=== PATIENT | female | born 1950 | race Caucasian/White ===

== ENCOUNTER 2020-07-20 18:25 | Emergency (ER) | payer OTHER ==
[~2020-07-20] VITALS: Ht 149.9 cm; Wt 52.2 kg
[2020-07-20 19:08] LABS: BASOPHILS ABSOLUTE AUTO 0.05 K/mm3 (0.00-0.23); BASOPHILS PERCENT AUTO 0 % (0-2); EOSINOPHILS ABSOLUTE AUTO 0.09 K/mm3 (0.00-0.68); EOSINOPHILS PERCENT AUTO 1 % (0-6); Hematocrit 43.6 % (33.0-51.0); Hemoglobin 14.3 g/dL (11.5-16.0); IMMATURE GRAN ABSOLUTE AUTO 0.03 K/mm3 (0.00-0.10); IMMATURE GRAN PERCENT AUTO 0 % (0-1); LYMPHOCYTES ABSOLUTE AUTO 1.43 K/mm3 (0.84-5.20); LYMPHOCYTES PERCENT AUTO 11 % (21-46); MONOCYTES ABSOLUTE AUTO 0.75 K/mm3 (0.16-1.47); MONOCYTES PERCENT AUTO 6 % (4-13); Mean Corpuscular HGB 29.1 pg (26.0-34.0); Mean Corpuscular HGB Conc 32.8 g/dL (31.5-36.5); Mean Corpuscular Volume 89 fL (80-100); Mean Platelet Volume 9.6 fL (9.1-12.4); NEUTROPHILS ABSOLUTE AUTO 10.95 K/mm3 (1.96-9.15); NEUTROPHILS PERCENT AUTO 82 % (41-73); Platelet Count 361 K/mm3 (150-400); RDW Coefficient Variation 14.1 % (11.7-14.2); Red Blood Cell Count 4.92 M/mm3 (3.80-5.20)
[2020-07-20 19:41] LABS: Alanine Aminotransfer (ALT/SGP 22 U/L (12-78); Albumin, Blood 3.7 g/dL (3.4-5.0); Albumin/Globulin Ratio 0.9 (0.8-1.8); Alk Phos 117 U/L (50-136); Anion Gap 10 mmol/L (6-16); Aspartate Aminotrans (AST/SGOT 15 U/L (12-37); Bilirubin, Total 0.5 mg/dL (0.1-1.0); Blood Urea Nitrogen 15 mg/dL (8-24); Bun/Creatinine Ratio 17.3 (12.0-20.0); CO2, Blood 23 mmol/L (21-32); Calcium, Blood 9.3 mg/dL (8.5-10.1); Chloride, Blood 109 mmol/L (98-108); Creatinine, Blood 0.87 mg/dL (0.40-1.00); Globulin, Blood 4.1 g/dL (2.2-4.0); Glomerular Filtration Rate >60 (60-); Glucose, Blood 113 mg/dL (70-99); Potassium, Blood 4.1 mmol/L (3.5-5.5); Sodium, Blood 142 mmol/L (136-145); Total Protein, Blood 7.8 g/dL (6.4-8.2); Troponin I <0.015 ng/mL (0.000-0.040)
[2020-07-20] MEDS ORDERED: IBUP600 PO (21:54)
[2020-07-21 00:10] LABS: Source, Urine Clean Catch
[2020-07-21 00:27] LABS: Bilirubin, Urine Neg (Neg); Blood, Urine Neg (Neg); Glucose Qualitative, Urine Neg (Neg); Ketones, Urine 1+ (Neg); Leukocyte Esterase, Urine 2+ (Neg); Nitrite, Urine Neg (Neg); Protein, Urine Neg (Neg); Urobilinogen, Urine NORM (Normal); pH, Urine 6.5 (5.0-8.0)
[2020-07-21 00:33] LABS: Appearance, Urine Clear (Clear); Color, Urine Yellow (P-Yellow)
[2020-07-21 00:34] LABS: Bacteria Few /hpf; Mucus Light (0-Heavy); Red Blood Cells, Urine Not Seen /hpf (0-2); Squamous Epithelial Cells Few /hpf (Few)
[2020-07-22] MEDS ORDERED: IBUP600 PO (14:28)
== END 2020-07-21 00:50 | disposition home or self-care (01) ==
LOC: ER 18:25
PROVIDERS: Physician Assistant; Student in an Organized Health Care Education/Training Program
DX: J44.9 Chronic obstructive pulmonary disease, unspecified (principal); G89.29 Other chronic pain; R07.81 Pleurodynia; R10.31 Right lower quadrant pain; I10 Essential (primary) hypertension; K21.9 Gastro-esophageal reflux disease without esophagitis; F17.210 Nicotine dependence, cigarettes, uncomplicated
CPT/HCPCS: 36415; 71046; 71260; 74177; 80053; 81001; 83880; 84484; 85025; 87086; 93005; 93010; 96374-59; 96375; 99285-25; J1940; J2270; Q9967

== ENCOUNTER 2020-07-22 14:06 | Inpatient (IN) | payer OTHER ==
[~2020-07-22] VITALS: Ht 157.5 cm; Wt 57.0 kg
[~2020-07-22 14:06] MED LIST: IBUP600 PO
[2020-07-22] MEDS ORDERED: IBUP600 PO (14:28)
[2020-07-22 14:45] LABS: Hematocrit 45.7 % (33.0-51.0); Hemoglobin 15.5 g/dL (11.5-16.0); Mean Corpuscular HGB Conc 33.9 g/dL (31.5-36.5); Mean Corpuscular Volume 86 fL (80-100); Mean Platelet Volume 9.9 fL (9.1-12.4); Platelet Count 285 K/mm3 (150-400); RDW Standard Deviation 44.3 fL (35.1-46.3); Red Blood Cell Count 5.34 M/mm3 (3.80-5.20); White Blood Cell Count 23.24 K/mm3 (4.00-11.30)
[2020-07-22 15:02] LABS: Albumin, Blood 2.9 g/dL (3.4-5.0); Albumin/Globulin Ratio 0.6 (0.8-1.8); Bilirubin, Total 0.4 mg/dL (0.1-1.0); Bun/Creatinine Ratio 20.3 (12.0-20.0); Calcium, Blood 9.6 mg/dL (8.5-10.1); Creatinine, Blood 0.98 mg/dL (0.40-1.00); Globulin, Blood 4.9 g/dL (2.2-4.0); Potassium, Blood 3.1 mmol/L (3.5-5.5); Total Protein, Blood 7.8 g/dL (6.4-8.2); Troponin I 0.039 ng/mL (0.000-0.040)
[2020-07-22 16:10] LABS: BAND PERCENT MAN 4 % (0-8); BASOPHILS PERCENT MAN 0 % (0-2); EOSINOPHILS PERCENT MAN 0 % (0-6); LYMPHOCYTES ABSOLUTE MAN 0.46 K/mm3 (0.84-5.20); LYMPHOCYTES PERCENT MAN 2 % (21-46); MONOCYTES ABSOLUTE MAN 0.69 K/mm3 (0.16-1.47); MONOCYTES PERCENT MAN 3 % (4-13); NEUTROPHILS ABSOLUTE MAN 22.07 K/mm3 (1.96-9.15); SEG NEUTROPHILS PERCENT MAN 91 % (41-73); TOTAL CELLS COUNTED 100
--- NOTE | 2020-07-22 22:20 | NUR ---
ADMIT NOTE PATIENT DROWSY UPON ADMIT BUT AWAKENS EASILY. PATIENT VERY PAINFUL AND MOANS/CRIES OUT CONSTANTLY WHEN AWAKE DUE TO BACK/RIB PAIN. HOWEVER, PATIENT QUICKLY FALLS ASLEEP WHEN NOT BEING MOVED OR SPOKEN TOO. PATIENT ABLE TO MOVE SELF ABOUT IN BED. PATIENT SETTLED IN AND ORIENTED TO THE ROOM, CALL LIGHT, AND UNIT.
[2020-07-23 04:10] LABS: BASOPHILS ABSOLUTE AUTO 0.04 K/mm3 (0.00-0.23); BASOPHILS PERCENT AUTO 0 % (0-2); Hematocrit 40.7 % (33.0-51.0); Hemoglobin 13.5 g/dL (11.5-16.0); LYMPHOCYTES ABSOLUTE AUTO 0.42 K/mm3 (0.84-5.20); LYMPHOCYTES PERCENT AUTO 2 % (21-46); MONOCYTES PERCENT AUTO 5 % (4-13); Mean Corpuscular HGB Conc 33.2 g/dL (31.5-36.5); Mean Corpuscular Volume 87 fL (80-100); Mean Platelet Volume 10.7 fL (9.1-12.4); Platelet Count 206 K/mm3 (150-400); RDW Coefficient Variation 14.2 % (11.7-14.2); RDW Standard Deviation 45.5 fL (35.1-46.3); Red Blood Cell Count 4.66 M/mm3 (3.80-5.20); White Blood Cell Count 17.85 K/mm3 (4.00-11.30)
[2020-07-23 04:25] LABS: EOSINOPHILS PERCENT AUTO 0 % (0-6); IMMATURE GRAN ABSOLUTE AUTO 0.14 K/mm3 (0.00-0.10); IMMATURE GRAN PERCENT AUTO 1 % (0-1); NEUTROPHILS ABSOLUTE AUTO 16.35 K/mm3 (1.96-9.15); NEUTROPHILS PERCENT AUTO 92 % (41-73)
[2020-07-23 04:30] LABS: Anion Gap 8 mmol/L (6-16); Blood Urea Nitrogen 16 mg/dL (8-24); Bun/Creatinine Ratio 19.6 (12.0-20.0); CO2, Blood 26 mmol/L (21-32); Calcium, Blood 8.7 mg/dL (8.5-10.1); Chloride, Blood 95 mmol/L (98-108); Creatinine, Blood 0.82 mg/dL (0.40-1.00); Glomerular Filtration Rate >60 (60-); Glucose, Blood 166 mg/dL (70-99); Potassium, Blood 3.5 mmol/L (3.5-5.5); Sodium, Blood 129 mmol/L (136-145)
--- NOTE | 2020-07-23 04:54 | NUR ---
UPDATE DR JOHN NOTIFIED OF PATIENT'S SODIUM LEVEL OF 129 THIS AM. NO ORDERS RECEIVED AT THIS TIME.
[2020-07-23 05:33] LABS: BAND PERCENT MAN 15 % (0-8); BASOPHILS PERCENT MAN 0 % (0-2); EOSINOPHILS PERCENT MAN 0 % (0-6); LYMPHOCYTES ABSOLUTE MAN 0.35 K/mm3 (0.84-5.20); LYMPHOCYTES PERCENT MAN 2 % (21-46); MONOCYTES ABSOLUTE MAN 1.24 K/mm3 (0.16-1.47); MONOCYTES PERCENT MAN 7 % (4-13); NEUTROPHILS ABSOLUTE MAN 16.24 K/mm3 (1.96-9.15); SEG NEUTROPHILS PERCENT MAN 76 % (41-73); TOTAL CELLS COUNTED 100
--- NOTE | 2020-07-23 05:49 | NUR ---
SHIFT SUMMARY PATIENT CONTINUES TO ALMOST CONSTANTLY MOAN AND CRY OUT WHILE AWAKE, STATING "I HAVE NEVER HURT THIS MUCH BEFORE!" BUT THEN PATIENT QUICKLY FALLS ASLEEP WHEN NOT BEING SPOKEN TO OR MOVED. PATIENT CONTINUES TO BE DROWSY. PATIENT MEDICATED FOR PAIN PER EMAR. PATIENT MEDICATED FOR ELEVATED BLOOD PRESSURE CHARTED. PATIENT'S VITAL SIGNS CHARTED. PATIENT CURRENTLY APPEARS TO BE SLEEPING QUIETLY AND COMFORTABLY. BED ALARM ON FOR SAFETY. WILL COTINUE TO MONITOR AND REPORT TO ONCOMING RN.
--- NOTE | 2020-07-23 16:34 | NUR ---
Echocardiogram completed.
--- NOTE | 2020-07-23 17:11 | NUR ---
SHIFT SUMMARY PT A&Ox3; CALM AND COOPERATIVE WITH RN. PT MOANING IN PAIN; MEDICATED PER EMAR; PT REFUSING TYLENOL ALONE. PT COUGHING; PRODUCTIVE; SPO2 >90 % ON 4L O2 VIA NC. PT DENIES NAUSEA, CHEST PAIN, AND DIZZINESS. PT RECEIVING IV ANTIBIOTICS. ECHO COMPLETED DURING SHIFT. DR WARREN NOTIFIED OF TROPS RESULTS. ELEVATED BP NOTED. OTHER VSS. NO OTHER ACUTE CHANGES NOTED DURING SHIFT. WILL CONTINUE TO MONITOR UNTIL REPORT GIVEN TO ONCOMING RN.
[2020-07-24 05:20] LABS: Hematocrit 36.2 % (33.0-51.0); Mean Corpuscular HGB 28.6 pg (26.0-34.0); Mean Corpuscular HGB Conc 33.1 g/dL (31.5-36.5); Mean Corpuscular Volume 86 fL (80-100); Mean Platelet Volume 10.1 fL (9.1-12.4); Platelet Count 202 K/mm3 (150-400); RDW Coefficient Variation 14.2 % (11.7-14.2); RDW Standard Deviation 45.3 fL (35.1-46.3); Red Blood Cell Count 4.19 M/mm3 (3.80-5.20); White Blood Cell Count 12.95 K/mm3 (4.00-11.30)
[2020-07-24 05:32] LABS: Anion Gap 10 mmol/L (6-16); Blood Urea Nitrogen 11 mg/dL (8-24); Bun/Creatinine Ratio 19.5 (12.0-20.0); CO2, Blood 24 mmol/L (21-32); Calcium, Blood 8.3 mg/dL (8.5-10.1); Chloride, Blood 102 mmol/L (98-108); Creatinine, Blood 0.57 mg/dL (0.40-1.00); Glomerular Filtration Rate >60 (60-); Glucose, Blood 110 mg/dL (70-99); Sodium, Blood 136 mmol/L (136-145)
--- NOTE | 2020-07-24 05:47 | NUR ---
SHIFT SUMMARY NO ACUTE CHANGES THIS SHIFT. MEDICATED FOR HIGH BP X2. MENTATION SEEMS TO BE BACK AND FORTH. WILL BE LUCID AND WITHIN A COUPLE MINUTES IS EITHER CONFUSED OR ASLEEP. PT CONSISTANTLY CALLS OUT FOR PAIN MEDICINE THROUGH THE NIGHT, ONCE NURSE IS IN ROOM TO GIVE MEDICATION PT IS ASLEEP AND WILL NOT AWAKE TO VOICE. MEDICATED FOR PAIN X2. PT IS LAYING IN BED WITH EYES CLOSED, EVEN AND UNLABORED RESPIRATIONS, NO APPARTENT NEEDS OR DISTRESS AT THIS TIME. CALL LIGHT AND PERSONAL ITEMS WITHIN REACH. BED IN LOWERED POSITION. WILL CONTINUE TO MONITOR UNTIL REPORT GIVEN TO DAY RN.
[2020-07-24 06:16] LABS: BAND PERCENT MAN 14 % (0-8); BASOPHILS PERCENT MAN 0 % (0-2); EOSINOPHILS PERCENT MAN 0 % (0-6); LYMPHOCYTES ABSOLUTE MAN 0.51 K/mm3 (0.84-5.20); LYMPHOCYTES PERCENT MAN 4 % (21-46); MONOCYTES ABSOLUTE MAN 0.64 K/mm3 (0.16-1.47); MONOCYTES PERCENT MAN 5 % (4-13); NEUTROPHILS ABSOLUTE MAN 11.78 K/mm3 (1.96-9.15); SEG NEUTROPHILS PERCENT MAN 77 % (41-73); TOTAL CELLS COUNTED 100
--- NOTE | 2020-07-24 17:40 | NUR ---
SHIFT SUMMARY PT A&Ox3; INTERMITTENT FORGETFULNESS. DROWSY FOR MAJORITY OF SHIFT. PT RESTING IN BED, 1 PERSON ASSIST TO BSC. PT REPORTS BACK; EPIGASTRIC AND RIGHT BREAST PAIN; MEDICATED PER EMAR. PT TITRATED FROM 4L O2 VIA NC TO 3L O2 VIA NC; SPO2 >90%. PT DENIES NAUSEA; DIZZINESS, AND LIGHTHEADEDNESS. PT RECIEVING IV ANTIBIOTICS. IV POTASSIUM REPLACEMENT. VSS. NO OTHER ACUTE CHANGES NOTED DURING SHIFT. WILL CONTINUE TO MONITOR UNTIL REPORT GIVEN TO ONCOMING RN.
[2020-07-24 18:49] LABS: Amylase, Blood 12 U/L (25-115)
[2020-07-24 18:52] LABS: Anion Gap 7 mmol/L (6-16); Blood Urea Nitrogen 14 mg/dL (8-24); Bun/Creatinine Ratio 25.3 (12.0-20.0); CO2, Blood 23 mmol/L (21-32); Calcium, Blood 8.5 mg/dL (8.5-10.1); Chloride, Blood 109 mmol/L (98-108); Creatinine, Blood 0.55 mg/dL (0.40-1.00); Glomerular Filtration Rate >60 (60-); Glucose, Blood 135 mg/dL (70-99); Potassium, Blood 3.8 mmol/L (3.5-5.5); Sodium, Blood 139 mmol/L (136-145)
--- NOTE | 2020-07-24 22:42 | NUR ---
ASSUMED CARE OF PATIENT AT APPROXIMATELY 1910 FROM REGINO Rios RN. PATIENT ALERT AND ORIENTED TO SELF, AND LOCATION; FORGETFUL AT TIMES. PATIENT REPORTS CHORNIC BACK PAIN; MEDICATED PER EMAR; PATIENT REPORTS PAIN WILL NOT ALLOW HER TO GET UP TO BEDSIDE COMMODE; MEDICATED PER EMAR; PATIENT USES BEDPAN. PATIENT MOANS WHILE AWAKE; ABLE TO FALL ASLEEP BUT PHONE RANG AND WOKE PATIENT BACK UP. PATIENT REPORTS PAIN IS IN UPPER BACK AND GOES TO FRONT OF CHEST FOR PAST 5 DAYS. PATIENT DENIES NUMBNESS, TINGLING, DIZZINESS OR NAUSEA. NSR W/ PAC'S ON TELE; OXYGEN SATURATION ABOVE 90% ON 3LPM VIA NC. IVF INFUSING INTO PG. PATIENT CURRENTLY RESTING IN BED; CALL LIGHT IN REACH; BED IN LOWEST POSISTION; BED ALARM ON; WILL CONTINUE TO MONITOR AND ASSESS UNTIL END OF SHIFT.
[2020-07-25 04:42] LABS: BASOPHILS ABSOLUTE AUTO 0.02 K/mm3 (0.00-0.23); BASOPHILS PERCENT AUTO 0 % (0-2); EOSINOPHILS ABSOLUTE AUTO 0.06 K/mm3 (0.00-0.68); EOSINOPHILS PERCENT AUTO 0 % (0-6); Hematocrit 37.1 % (33.0-51.0); Hemoglobin 12.3 g/dL (11.5-16.0); IMMATURE GRAN ABSOLUTE AUTO 0.14 K/mm3 (0.00-0.10); IMMATURE GRAN PERCENT AUTO 1 % (0-1); LYMPHOCYTES ABSOLUTE AUTO 0.89 K/mm3 (0.84-5.20); LYMPHOCYTES PERCENT AUTO 7 % (21-46); MONOCYTES ABSOLUTE AUTO 1.13 K/mm3 (0.16-1.47); MONOCYTES PERCENT AUTO 9 % (4-13); Mean Corpuscular HGB Conc 33.2 g/dL (31.5-36.5); Mean Corpuscular Volume 88 fL (80-100); Mean Platelet Volume 9.7 fL (9.1-12.4); NEUTROPHILS PERCENT AUTO 83 % (41-73); Platelet Count 221 K/mm3 (150-400); RDW Coefficient Variation 14.6 % (11.7-14.2); RDW Standard Deviation 47.1 fL (35.1-46.3); Red Blood Cell Count 4.24 M/mm3 (3.80-5.20); White Blood Cell Count 13.34 K/mm3 (4.00-11.30)
[2020-07-25 04:59] LABS: Anion Gap 7 mmol/L (6-16); Blood Urea Nitrogen 11 mg/dL (8-24); Bun/Creatinine Ratio 21.2 (12.0-20.0); CO2, Blood 26 mmol/L (21-32); Calcium, Blood 8.4 mg/dL (8.5-10.1); Chloride, Blood 107 mmol/L (98-108); Creatinine, Blood 0.52 mg/dL (0.40-1.00); Glomerular Filtration Rate >60 (60-); Glucose, Blood 112 mg/dL (70-99); Potassium, Blood 3.3 mmol/L (3.5-5.5); Sodium, Blood 140 mmol/L (136-145)
--- NOTE | 2020-07-25 05:56 | NUR ---
PATIENT UP MOST OF NIGHT; SLEPT FOR ABOUT 30 MINUTES AT A TIME. MOANED MOST OF NIGHT; REPORTS SHE HAS BEEN IN THIS PAIN FOR MOST OF HER LIFE. REQUESTED TO SIT IN CHAIR; RECLINER PROVIDED AND PATIENT HAS BEEN SLEEPING SINCE BEING PLACED IN RECLINER. VSS. WILL CONTINE TO MONITOR AND ASSESS UNTIL END OF SHIFT.
--- NOTE | 2020-07-25 09:54 | NUR ---
NS HUNG AT 5ML/HR TKO
[2020-07-25 11:23] LABS: Vancomycin, Trough 3.8 ug/mL (5.0-10.0)
--- NOTE | 2020-07-25 13:00 | NUR ---
PT ARRIVED TO ROOM 313 VIA W/C FROM PCU AND ABLE TO TRANSFER SELF TO BED WITH 1 ASSIST. SOB WITH ANY ACTIVITY AND SLOW TO RECOVER. AUDIBLE CRACKLES HEARD WITHOUT STETHESCOPE. SETTLED IN TO BED AND ORIENTED TO ROOM.
--- NOTE | 2020-07-25 15:55 | NUR ---
PT SLEEPING THIS AFTERNOON. AUDIBLE CRACKLES LESS BUT IS STILL SOB WITH ANY ACTIVITY. UP TO COMMODE SEVERAL TIMES THIS AFTERNOON.
--- NOTE | 2020-07-25 18:39 | NUR ---
SHIFT SUMMARY PT SLEEPING ON AND OFF SINCE ARRIVAL. STATES SHE THINKS SHE HASN'T SLEPT. BP ELEVATED. LEFT A MESSAGE WITH MD WITH NO RETURN CALL. MD DID COME TO UNIT LATER AND SPOKE ABOUT BP AND NEEDING TELE FOR LABATALOL. NEW ORDERS. RESTLESS LEGS THIS EVENING WHEN FLEXERIL GIVEN AND REPORTED FEELING VERY HOT AND NOT FEELING WELL AT ALL. WILL REPORT CONDITION TO ONCOMING SHIFT.
[2020-07-26 05:24] LABS: BASOPHILS ABSOLUTE AUTO 0.04 K/mm3 (0.00-0.23); BASOPHILS PERCENT AUTO 0 % (0-2); EOSINOPHILS ABSOLUTE AUTO 0.12 K/mm3 (0.00-0.68); EOSINOPHILS PERCENT AUTO 1 % (0-6); Hematocrit 37.6 % (33.0-51.0); Hemoglobin 12.3 g/dL (11.5-16.0); IMMATURE GRAN ABSOLUTE AUTO 0.31 K/mm3 (0.00-0.10); IMMATURE GRAN PERCENT AUTO 2 % (0-1); LYMPHOCYTES ABSOLUTE AUTO 1.34 K/mm3 (0.84-5.20); LYMPHOCYTES PERCENT AUTO 9 % (21-46); MONOCYTES ABSOLUTE AUTO 1.03 K/mm3 (0.16-1.47); MONOCYTES PERCENT AUTO 7 % (4-13); Mean Corpuscular HGB 28.6 pg (26.0-34.0); Mean Corpuscular HGB Conc 32.7 g/dL (31.5-36.5); Mean Corpuscular Volume 87 fL (80-100); Mean Platelet Volume 9.7 fL (9.1-12.4); NEUTROPHILS ABSOLUTE AUTO 11.34 K/mm3 (1.96-9.15); NEUTROPHILS PERCENT AUTO 80 % (41-73); Platelet Count 261 K/mm3 (150-400); RDW Coefficient Variation 14.8 % (11.7-14.2); RDW Standard Deviation 48.3 fL (35.1-46.3); White Blood Cell Count 14.18 K/mm3 (4.00-11.30)
[2020-07-26 05:43] LABS: Anion Gap 5 mmol/L (6-16); Blood Urea Nitrogen 12 mg/dL (8-24); Bun/Creatinine Ratio 23.7 (12.0-20.0); CO2, Blood 29 mmol/L (21-32); Calcium, Blood 8.9 mg/dL (8.5-10.1); Chloride, Blood 107 mmol/L (98-108); Creatinine, Blood 0.51 mg/dL (0.40-1.00); Glomerular Filtration Rate >60 (60-); Glucose, Blood 110 mg/dL (70-99); Potassium, Blood 3.3 mmol/L (3.5-5.5); Sodium, Blood 141 mmol/L (136-145)
--- NOTE | 2020-07-26 06:32 | NUR ---
SHIFT SUMMARY: SBP ELEVATED. HYDRALAZINE ADMINISTERED PER ORDERS. PT DENIES RANDALL OR CHEST PAIN. MED FOR BACK PAIN SEVERAL TIMES PER ORDERS. PT STATES THIS IS NOT CHRONIC BUT STARTED W/ RECENT COUGHING. HAS SLEPT BETWEEN PAIN MED DOSES. 02 SATS 93% ON 2L VIA NC. TACHYPNEIC. RESPS SHALLOW. LS COARSE RHONCHI THROUGHOUT. PT STATES HER COUGH PRODUCES SMALL AMT OF WHITE SPUTUM. FLUTTER VALVE USE ENCOURAGED AND WITHIN REACH AT BEDSIDE. NO ACUTE CONCERS AT THIS TIME.
--- NOTE | 2020-07-26 08:33 | NUR ---
SPOKE TO DR WARREN ON HER ROUNDS- PT BP HAS BEEN PERSISTENTLY HIGH WITH NO CHANGE WITH PRN HYDRALIZINE. PT VERY LETHARGIC THIS MORNING, SHE WILL RESPOND TO STAFF BUT IS ASLEEP WITHIN SECONDS OF WAKING. ORDER RECIEVED FOR TELE AND HOLD PO MEDS FOR NOW D/T LETHARGY.
[2020-07-26 11:30] LABS: Vancomycin, Trough 10.8 ug/mL (5.0-10.0)
--- NOTE | 2020-07-26 16:12 | NUR ---
Echo performed under my supervision.
--- NOTE | 2020-07-26 16:38 | NUR ---
PT CALLED AND STATED HER LEFT ARM WAS HRUTING REALLY BAD. PT HAS HAD IV POTASSIUM INFUSING FOR THE PAST 3-4 HOURS, FLUSHED THE PG IT FLUSHED WELL AND STOPPED HURTING ONCE FLUSHED. STARTED NS AT 75 PER HOUR CONCURRENT WITH THE POTASSIUM, PT TOLERATING WELL AT THIS TIME.
--- NOTE | 2020-07-26 16:44 | NUR ---
CALLED DR WARREN- SHE IS AWARE OF THE IVF RUNNING WITH THE IV POTASSIUM. RECIEVED ORDER FOR NS TO RUN CONCURRENTLY WITH THE POTASSIUM. WILL DC ORDER ONCE POTASSIUM IS COMPLETE.
--- NOTE | 2020-07-26 19:15 | NUR ---
SHIFT SUMMARY- PT MEDICATED FOR SBP GREATER THAN 180 ONCE TODAY WITH IV LEBETOLOL, BP CAME DOWN TO THE 140'S. PT ON TELE RUNNING NSR WITH LOTS OF PAC'S AND SOME PVC'S. PT HAS BEEN VERY LETHARGIC OFF AND ON TODAY. THIS EVENING SHE GOT UP AND SAT IN A CHAIR TO EAT HER DINNER. SHE ATE WELL. MEDICATED WITH PAIN MEDICATION WHEN THE PT WAS AWAKE AND REQUESTING PAIN MEDICATION. THIS EVENING RIGHT BEFORE CHANGE OF SHIFT THE PT HAD AN EPISODE OF TACHYPNEA, RESP RATE WAS UP TO 32 BPM. PT HAD GOTTEN UP TO THE BSC AND BACK TO THE BED, FULL SET OF VITALS COMPLETED AT THAT TIME. VEWS SCORE OF 3 FOR INCREASED RESPIRATIONS. CALLED RT FEMI AND HE CAME TO GIVE THE PT A BREATHING Tx. SHE SEEMS TO BE BREATHING MUCH BETTER AT THIS TIME.
[2020-07-26 21:09] LABS: Anion Gap 7 mmol/L (6-16); Blood Urea Nitrogen 16 mg/dL (8-24); Bun/Creatinine Ratio 24.9 (12.0-20.0); CO2, Blood 26 mmol/L (21-32); Calcium, Blood 8.8 mg/dL (8.5-10.1); Chloride, Blood 108 mmol/L (98-108); Creatinine, Blood 0.64 mg/dL (0.40-1.00); Glomerular Filtration Rate >60 (60-); Glucose, Blood 121 mg/dL (70-99); Potassium, Blood 4.1 mmol/L (3.5-5.5); Sodium, Blood 141 mmol/L (136-145)
--- NOTE | 2020-07-27 01:24 | NUR ---
0035 PT MOANING AND YELLING "OW" IN PAIN. MEDICATED FOR PAIN AT 0041. PT ALSO REQUESTED SOMETHING FOR SLEEP. MELATONIN GIVEN.
[2020-07-27 04:36] LABS: BASOPHILS ABSOLUTE AUTO 0.06 K/mm3 (0.00-0.23); BASOPHILS PERCENT AUTO 0 % (0-2); EOSINOPHILS ABSOLUTE AUTO 0.12 K/mm3 (0.00-0.68); EOSINOPHILS PERCENT AUTO 1 % (0-6); Hematocrit 36.4 % (33.0-51.0); IMMATURE GRAN ABSOLUTE AUTO 0.72 K/mm3 (0.00-0.10); IMMATURE GRAN PERCENT AUTO 5 % (0-1); LYMPHOCYTES ABSOLUTE AUTO 1.79 K/mm3 (0.84-5.20); LYMPHOCYTES PERCENT AUTO 12 % (21-46); MONOCYTES ABSOLUTE AUTO 1.14 K/mm3 (0.16-1.47); MONOCYTES PERCENT AUTO 7 % (4-13); Mean Corpuscular HGB 28.6 pg (26.0-34.0); Mean Corpuscular Volume 87 fL (80-100); Mean Platelet Volume 9.5 fL (9.1-12.4); NEUTROPHILS ABSOLUTE AUTO 11.48 K/mm3 (1.96-9.15); NEUTROPHILS PERCENT AUTO 75 % (41-73); Platelet Count 295 K/mm3 (150-400); RDW Standard Deviation 47.8 fL (35.1-46.3); White Blood Cell Count 15.31 K/mm3 (4.00-11.30)
[2020-07-27 04:59] LABS: Anion Gap 7 mmol/L (6-16); Blood Urea Nitrogen 15 mg/dL (8-24); Bun/Creatinine Ratio 29.4 (12.0-20.0); CO2, Blood 29 mmol/L (21-32); Chloride, Blood 106 mmol/L (98-108); Creatinine, Blood 0.51 mg/dL (0.40-1.00); Glomerular Filtration Rate >60 (60-); Glucose, Blood 129 mg/dL (70-99); Potassium, Blood 3.6 mmol/L (3.5-5.5); Sodium, Blood 142 mmol/L (136-145)
--- NOTE | 2020-07-27 06:44 | NUR ---
SHIFT SUMMARY PATIENT ALERT AND ORIENTED, ALTHOUGH SEEMS TO MAKE HERSELF ANXIOUS OFTEN TO THE POINT OF BEING SHORT OF BREATH. PATIENT MEDICATED PER EMAR FOR PAIN. POWERFLIDE PATEND AND FLUSHED. BED IN LOWEST POSITION WITH WHEELS LOCKED. PATIENT CURRENTLY IN RECLINER WITH WHEELS LOCKED AND ALARM ON. CALL LIGHT WITHIN REACH. REPORT GIVEN TO ONCOMING RN.
--- NOTE | 2020-07-27 07:32 | NUR ---
CALLED DR WARREN- PT LOOKS LIKE SHE IS MORE WEAK AND FEELS WORSE TODAY WHEN COMPARED TO YESTERDAY. O2 REQUIREMENTS HAVE INCREASED FROM 2L TO 3L OVER NIGHT. LUNG SOUNDS ARE MORE MOIST. SPOKE TO RT LOO FOR SUGGESTIONS. REQUESTED MUCINEX, OR MUCOMYST, POSSIBLE STEROIDS TO HELP OPEN THE AIRWAYS. PLANS TO ORDER REPEAT BLOOD CULTURES AND WILL PLACE OTHER MEDICATION ORDERS. NO VERBAL ORDERS RECIEVED AT THIS TIME.
--- NOTE | 2020-07-27 09:07 | NUR ---
SPOKE TO DR CEE- PT SITTING UP IN A CHAIR CALL LIGHT IN REACH, LUNGS SOUND WET AND CONGESTED. PT DOES NOT LIKE TO COUGH IT IS PAINFUL. SHE DID DO SO WHEN STAFF REQUESTED. RECIEVED ORDER FOR MUCINEX AND DC HYDROCODONE. PT LETHARGY HAS RESOLVED QUITE A BIT SINCE THIS MORNING. SHE DID RECIEVE IV LEBETOLOL, IV SOLUMEDROL AND NEW IV ABX. PT STATED SHE USES A CPAP AT HOME RECIEVED ORDER FOR CPAP PROTOCOL.
--- NOTE | 2020-07-27 11:05 | NUR ---
PT HAVING MULTIPLE SMALL BMS A LITTLE LOOSE. PT HAS RECIEVED MULTIPLE ABX, CALLED DR WARREN AND RECIEVED ORDER FOR PROBIOTIC. VideumTECH DOWN JUST AFTER THIS ORDER PUT INTO THE SYSTEM WHEN imeem WAS WORKING AGAIN. ADMINISTERED ONCE VERIFIED.
--- NOTE | 2020-07-27 12:00 | NUR ---
CALLED DR WARREN- PT C/O "GOING TO PASS OUT" PT STATES SHE DOES NOT "FEEL GOOD AT ALL" SHE SAID SHE DOESN'T "FEEL RIGHT." PT DOES NOT APPEAR DIFFERENT AT THIS POINT THAN SHE DID EARLIER IN THE SHIFT SBP IN THE 150'S NO CHANGE ON TELE PT C/O BEING HOT SHE IS AFEBRILE AT THIS TIME. DR WARREN IS AWARE SHE WILL COME TO SEE THE PT SHORTLY.
--- NOTE | 2020-07-27 19:30 | NUR ---
SHIFT SUMMARY- PT STILL APPEARS TO BE MISERABLE. PT DOES HAVE A HOME CPAP SO CPAP WAS ORDERED PT ON CONT BIOX O2 SATS SEEM TO DROP WHILE THE PT USES THE BATHROOM DOWN LOW 85 WITH NO CHANGE IN THE WAVE FORM ON THE MONITOR. BEDSIDE REPORT COMPLETED WITH NIGHT RN. PT SOB AFTER USING THE COMMODE AND WAS ASSISTED BACK TO BED AND HER CPAP WAS PLACED. SPOKE TO RT ABOUT TURNING DOWN THE ALARM A LITTLE BIT IT IS PIERCINGLY LOUD AND STARTLES STAFF WELL THE PT. PT NEEDS A NEW FINGER PROBE, ASKED IF HE HAD A BETTER WAY OF MONITORING FOR HER HER FINGERS ARE COLD. RT FEMI WILL SEE THE PT SHORTLY NIGHT RN AWARE.
--- NOTE | 2020-07-28 06:46 | NUR ---
GUEST SERVICE TEAM LEADER SUMMARY PT A/O X4. HAS SLEPT ON AND OFF TONIGHT. CALLS APPROPRIATELY MOST OF THE NIGHT FOR ASSISTANCE TO BSC. VSS. TACHYPENIC AT TIMES. PT DESATS TO THE LOW TO MID 80'S WHEN USING THE BSC. PT TAUGHT TO TAKE SLOW CONTROLLED BREATHING AND SATS COME BACK UP TO 90% AND ABOVE. CURRENTLY ON 3L O2 VIA NC. USES CAP AT NIGHT. BED ALARM ON, CALL LIGHT WITHIN REACH. WILL GIVE REPORT TO ONCOMING NURSE.
--- NOTE | 2020-07-28 10:06 | NUR ---
CALLED DR CEE- PT BLOOD CULTURE RESULTS CAME BACK GRAM + COCCI IN CLUSTERS DR DECKER.
--- NOTE | 2020-07-28 12:26 | NUR ---
called dr mooney- new order for lisinopril 40mg daily however pt recieved 20mg this am. order recieved to give half of the 40 mg as a catch up dose. will give 20mg now.
--- NOTE | 2020-07-28 19:28 | NUR ---
SHIFT SUMMARY- PT ALERT AND ORIENTED 1PA TO THE BATHROOM. PT HAS BEEN MUCH MORE ALERT TODAY SHE HAS HIGHER O2 REQUIREMENTS WHEN SHE IS AMBULATING 6L SEEMS TO KEEP HER AROUND 93% WHEN WALKING TO THE BATHROOM. WHEN AT REST O2 IS 3L VIA NC OR 4L BLEED IN TO CPAP. PT MUCH MORE ACTIVE TODAY AND SHE ATE AT ALL THREE MEAL TIMES. RECIEVED ORDER FOR NPO AT MIDNIGHT FOR POSSIBLE KYLE TOMORROW PER DR CEE. PT HAS A PG TO THE [facility] THAT DRAWS WELL. PASSED ALL ON IN BEDSIDE REPORT TO NIGHT RN. 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 PT HAS BEEN DOING THIS AND HER COUGH SEEMS TO BE STRONGER AND SHE IS GETTING MUCUS UP.
--- NOTE | 2020-07-29 08:02 | NUR ---
MARKET MAKER SUMMARY PT A/O X4. SLEPT MOST OF THE NIGHT. MEDICATED ONCE FOR PAIN TONIGHT. 3L O2 VIA NC WHILE AWAKE WITH CPAP AT NIGHT. PT NEEDS TO HAVE O2 BUMPED UP TO 4-5L WHILE AMBULATING TO BATHROOM. CONT. PULSE OX IN PLACE. PT GETS DYSPENIC AT TIMES AND DESATS TO THE LOW TO MID 80'S. WITH EDUCATION TO TAKE DEEP BREATHES THROUGH PT'S NOSE, O2 SAT COMES BACK UP TO THE 90'S. NPO SINCE MIDNIGHT PER ORDERS. REPORT GIVEN TO ONCOMING RN.
[2020-07-29 12:05] LABS: Anion Gap 6 mmol/L (6-16); Blood Urea Nitrogen 27 mg/dL (8-24); Bun/Creatinine Ratio 46.2 (12.0-20.0); CO2, Blood 27 mmol/L (21-32); Calcium, Blood 8.1 mg/dL (8.5-10.1); Chloride, Blood 107 mmol/L (98-108); Creatinine, Blood 0.59 mg/dL (0.40-1.00); Glomerular Filtration Rate >60 (60-); Glucose, Blood 123 mg/dL (70-99); Potassium, Blood 3.7 mmol/L (3.5-5.5); Sodium, Blood 140 mmol/L (136-145)
--- NOTE | 2020-07-29 14:37 | NUR ---
PT COUGHING, SLOWLY WAKING UP FROM NAP
--- NOTE | 2020-07-29 14:41 | NUR ---
PT AWAKE AND TALKING WITH STAFF
--- NOTE | 2020-07-29 14:45 | NUR ---
PT TAKING SIPS OF WATER
--- NOTE | 2020-07-29 15:13 | NUR ---
PT AWAKE, ALERT, AND TALKING. TAKING SIPS OF WATER WITHOUT PROBLEMS. PT BACK TO ROOM 313 PER W/C. YUN RN GIVEN REPORT. PT BACK TO ROOM WITH OXYGEN. RADHA TO RESUME CARE OF PT.
--- NOTE | 2020-07-29 18:32 | NUR ---
SUMMARY PT IS A/O X4, PLEASANT AFFECT. DX PNEUMONIA. LUNGS ARE COARSE T/O. SHE IS SOB/HYPOXIC w EXERTION, BIOX DROPS TO 80'S. @ REST SHE MAINTAINS 94-98% TITRATING O2 FROM 3-5L TODAY. SHE HAS BEEN UP IN CHAIR MOST OF DAY. SHE WAS NPO FOR KYLE @ NOON w DR MORENO. IV ANTIBX CONTINUE. SHE IS ON [employer] & WILL HAVE SWALLOW STUDY IN AM. VSS/AFEBRILE.
--- NOTE | 2020-07-30 05:01 | NUR ---
SHIFT SUMMARY AOX4. VSS. TELE NSR c PVC @92. SPO2 >90% ON 4L. E/U RESPIRATIONS. LUNGS ARE DIM c COURSE BASES. HAS OCCASIONAL WET PRODUCTIVE COUGH c SCANT AMOUNT CLEAR SPUTUM. PT REFUSED TO WEAR CPAP TONIGHT. REPORTS 8-910 PAIN IN BILAT SIDES RADIATING TO BACK, MEDICATED c NAPROXYN & TYLENOL PER ORDERS. PT WAS STILL MOANING IN PAIN & REPORTED NO RELIEF, INFORMED DR BETH & HE ORDERED OXYCODONE. MEDICATED 1X c 5MG OXYCODONE & PT REPORTS PAIN LEVEL DECREASING FROM 8 TO 5/10. PT HAS BEEN UP IN RECLINER SLEEPING ON/OFF T/O NIGHT. CALL LIGHT IN REACH.
--- NOTE | 2020-07-30 17:59 | NUR ---
SUMMARY PT STATE POOR SLEEP LAST NOC, SHE WAS DROWSY/SLEEPY MOST OF MORNING, UP IN RECLINER. NAPROSYN GIVEN FOR CHR BACK PAIN. LUNGS CONTINUE COARSE T/O w OCC COUGH, BIOX 92-96% ON 3-5L DEPENDING ON EXERTION. SHE WAS UP & SHOWERED, ASSISTED BY [employer] HRMS DEVELOPER. UP IN ROOM FOR FITZ WOMACK. SHE WENT OUT TO RADIOLOGY FOR BARIUM SWALLOW w ST, NEW ORDERS FROM . HER SISTER VISITED THIS AFTERNOON. PT STATE FEELING IMPROVED THIS AFTERNOON. VSS.
--- NOTE | 2020-07-31 05:29 | NUR ---
SHIFT SUMMARY AOX4. VSS. SPO2 >95% ON 3.5L, TITRATED TO 2.5L & SPO2 >90%. PT DENIES DYSPNEA @REST. E/U RESPIRATIONS. LUNGS SOUND DIM & COURSE T/O. HAS CONGESTED COUGH, NO SPUTUM NOTICED. PT TOOK CPAP OFF AFTER A FEW HRS OF WEARING. REPORTS 8/10 PAIN IN LUQ ABD & BACK, MEDICATED 2X c NAPROXEN & 2X c TYLENOL, PT FALLS ASLEEP EASILY & SHORTLY AFTER REPORTING PAIN. HAS VERY GOOD APPETITE & ASKS FOR SNACKS FREQUENTLY. DID REPORT NAUSEA THIS AM, GOT PT UP TO BSC & SHE HAD MED SOFT YELLOW/GREEN BM c UNDIGESTED FOOD. AFTER BM PT STATED NAUSEA WAS GOING AWAY. PLAN TO DC TO SNF. CALL LIGHT IN REACH.
[2020-07-31 08:38] LABS: Hematocrit 31.9 % (33.0-51.0); Hemoglobin 10.2 g/dL (11.5-16.0); Mean Corpuscular HGB 28.6 pg (26.0-34.0); Mean Corpuscular Volume 89 fL (80-100); Mean Platelet Volume 9.1 fL (9.1-12.4); Platelet Count 494 K/mm3 (150-400); RDW Coefficient Variation 15.5 % (11.7-14.2); RDW Standard Deviation 51.1 fL (35.1-46.3); Red Blood Cell Count 3.57 M/mm3 (3.80-5.20); White Blood Cell Count 17.76 K/mm3 (4.00-11.30)
[2020-07-31 08:54] LABS: Anion Gap 3 mmol/L (6-16); Blood Urea Nitrogen 22 mg/dL (8-24); Bun/Creatinine Ratio 34.8 (12.0-20.0); CO2, Blood 30 mmol/L (21-32); Calcium, Blood 8.4 mg/dL (8.5-10.1); Chloride, Blood 109 mmol/L (98-108); Creatinine, Blood 0.63 mg/dL (0.40-1.00); Glomerular Filtration Rate >60 (60-); Glucose, Blood 88 mg/dL (70-99); Potassium, Blood 3.9 mmol/L (3.5-5.5); Sodium, Blood 142 mmol/L (136-145)
[2020-07-31 09:03] LABS: BAND PERCENT MAN 2 % (0-8); BASOPHILS PERCENT MAN 0 % (0-2); EOSINOPHILS ABSOLUTE MAN 0.17 K/mm3 (0.00-0.68); EOSINOPHILS PERCENT MAN 1 % (0-6); LYMPHOCYTES ABSOLUTE MAN 1.59 K/mm3 (0.84-5.20); LYMPHOCYTES PERCENT MAN 9 % (21-46); METAMYELOCYTE ABSOLUTE MAN 0.17 K/mm3 (0.00-0.00); METAMYELOCYTE PERCENT MAN 1 % (0-0); MONOCYTES ABSOLUTE MAN 0.53 K/mm3 (0.16-1.47); MONOCYTES PERCENT MAN 3 % (4-13); NEUTROPHILS ABSOLUTE MAN 15.27 K/mm3 (1.96-9.15); SEG NEUTROPHILS PERCENT MAN 84 % (41-73); TOTAL CELLS COUNTED 100
--- NOTE | 2020-07-31 17:31 | NUR ---
SHIFT SUMMARY- PT IS A/O, PLESANT AND COOPERATIVE. SHE IS AMBULATORY IN THE ROOM. SHE IS EATING AND DRINKING WELL. SHE IS RECIEVING IV ABX. HER VITALS HAVE REMAINED STABLE.
[2020-08-01] MEDS ORDERED: ACET325 PO (15:33)
[2020-08-01] MEDS ORDERED: ALBU2.5V5 INH (15:34)
[2020-08-01] MEDS ORDERED: CEFAZOLIN IV (15:36)
[2020-08-01] MEDS ORDERED: CYCL10 PO (15:36)
[2020-08-01] MEDS ORDERED: IPRAT-ALBUT 0.5-3 ML INH (15:37)
[2020-08-01] MEDS ORDERED: GUAIFENESIN ER600 MG PO (15:37)
[2020-08-01] MEDS ORDERED: MELA3 PO (15:38)
[2020-08-01] MEDS ORDERED: LISI20 PO (15:38)
[2020-08-01] MEDS ORDERED: NAPR500 PO (15:39)
[2020-08-01] MEDS ORDERED: Nicoderm Cq1 EAC1 TOP (15:39)
[2020-08-01] MEDS ORDERED: Florastor250 MG PO (15:40)
[2020-08-01] MEDS ORDERED: OXYC5 PO (15:40)
--- NOTE | 2020-08-01 17:51 | NUR ---
DISCHARGE PICKED UP AT 1750 FOR D/C TO [facility]. SBAR REPORT CALLED TO MONAE AT 1330. ALL PERSONAL BELONGINGS SENT WITH PATIENT. TREATED FRO BACK PAIN PRIOR TO TRANSPORT.
== END 2020-08-01 17:50 | DRG 871 ==
LOC: ER 14:06 → PCU 17:22 → ERHOLD 17:22 → MEDS 17:22 → PCU 20:30 → MEDS 07-25 12:45
PROVIDERS: Emergency Medicine; Pharmacist; Student in an Organized Health Care Education/Training Program; ADMIT Internal Medicine
PROC: B24BZZ4 Ultrasonography of Heart with Aorta, Transesophageal (ICD-10-PCS; principal; 2020-07-29)
DX: A41.01 Sepsis due to Methicillin susceptible Staphylococcus aureus (principal); J96.21 Acute and chronic respiratory failure with hypoxia; G92 Toxic encephalopathy; J18.9 Pneumonia, unspecified organism; J44.0 Chronic obstructive pulmonary disease with (acute) lower respiratory infection; E87.1 Hypo-osmolality and hyponatremia; Z20.828 Contact with and (suspected) exposure to other viral communicable diseases; J44.1 Chronic obstructive pulmonary disease with (acute) exacerbation; I10 Essential (primary) hypertension; K21.9 Gastro-esophageal reflux disease without esophagitis; F17.210 Nicotine dependence, cigarettes, uncomplicated; E87.6 Hypokalemia; M94.0 Chondrocostal junction syndrome [Tietze]; M47.9 Spondylosis, unspecified; M54.9 Dorsalgia, unspecified; R13.10 Dysphagia, unspecified
CPT/HCPCS: 36415; 71045; 74230; 80048; 80053; 80202; 82150; 83605; 83690; 83880; 84132; 84484; 85025; 85651; 87040; 87070; 87077; 87147; 87186; 87205; 92526; 92610; 92611; 93005; 93010; 93306; 93308; 93312; 93325; 94640; 94660; 94667; 94760; 94762; 96365; 96375; 97110; 97116; 97162; 97165; 97530; 97535; 99285-25; A9270; A9270-GY; C1751; J0456; J0690; J0696; J1650; J1956; J2270; J2704; J2920; J3370; J3480; J7030; J7050; J7120; J7512; U0003

== ENCOUNTER 2020-09-13 02:48 | Emergency (ER) | payer OTHER ==
[~2020-09-13] VITALS: Ht 152.4 cm; Wt 40.8 kg
[~2020-09-13 02:48] MED LIST changes: +ACET325 PO; +ALBU2.5V5 INH; +CEFAZOLIN IV; +CYCL10 PO; +Florastor250 MG PO; +GUAIFENESIN ER600 MG PO; +IPRAT-ALBUT 0.5-3 ML INH; +LISI20 PO; +MELA3 PO; +NAPR500 PO; +Nicoderm Cq1 EAC1 TOP; +OXYC5 PO
[2020-09-13 04:47] LABS: BASOPHILS ABSOLUTE AUTO 0.04 K/mm3 (0.00-0.23); BASOPHILS PERCENT AUTO 0 % (0-2); EOSINOPHILS ABSOLUTE AUTO 0.21 K/mm3 (0.00-0.68); EOSINOPHILS PERCENT AUTO 2 % (0-6); Hematocrit 34.4 % (33.0-51.0); Hemoglobin 10.4 g/dL (11.5-16.0); IMMATURE GRAN ABSOLUTE AUTO 0.04 K/mm3 (0.00-0.10); IMMATURE GRAN PERCENT AUTO 0 % (0-1); LYMPHOCYTES ABSOLUTE AUTO 1.91 K/mm3 (0.84-5.20); LYMPHOCYTES PERCENT AUTO 16 % (21-46); MONOCYTES ABSOLUTE AUTO 0.67 K/mm3 (0.16-1.47); MONOCYTES PERCENT AUTO 6 % (4-13); Mean Corpuscular HGB 27.1 pg (26.0-34.0); Mean Corpuscular HGB Conc 30.2 g/dL (31.5-36.5); Mean Corpuscular Volume 90 fL (80-100); NEUTROPHILS ABSOLUTE AUTO 9.41 K/mm3 (1.96-9.15); NEUTROPHILS PERCENT AUTO 77 % (41-73); Platelet Count 362 K/mm3 (150-400); RDW Coefficient Variation 15.2 % (11.7-14.2); RDW Standard Deviation 49.6 fL (35.1-46.3); Red Blood Cell Count 3.84 M/mm3 (3.80-5.20); White Blood Cell Count 12.28 K/mm3 (4.00-11.30)
[2020-09-13 05:06] LABS: Albumin, Blood 3.2 g/dL (3.4-5.0); Albumin/Globulin Ratio 0.8 (0.8-1.8); Bilirubin, Total 0.4 mg/dL (0.1-1.0); Bun/Creatinine Ratio 38.6 (12.0-20.0); Calcium, Blood 9.4 mg/dL (8.5-10.1); Creatinine, Blood 1.27 mg/dL (0.40-1.00); Globulin, Blood 4.2 g/dL (2.2-4.0); Potassium, Blood 4.1 mmol/L (3.5-5.5); Total Protein, Blood 7.4 g/dL (6.4-8.2)
[2020-09-13 05:27] LABS: Source, Urine Clean Catch
[2020-09-13 05:42] LABS: Creatine Kinase MB 10.9 ng/mL (0.0-3.6); Creatine Kinase MB Index 2.6 (0.0-4.0)
[2020-09-13 05:49] LABS: Appearance, Urine Clear (Clear); Bilirubin, Urine Neg (Neg); Blood, Urine 2+ (Neg); Color, Urine Yellow (P-Yellow); Glucose Qualitative, Urine Neg (Neg); Ketones, Urine 1+ (Neg); Leukocyte Esterase, Urine Neg (Neg); Nitrite, Urine Neg (Neg); Protein, Urine 2+ (Neg); Urobilinogen, Urine NORM (Normal)
[2020-09-13 06:02] LABS: Amorphous Light (0-Heavy); Bacteria Mod /hpf; Red Blood Cells, Urine 0-2 /hpf (0-2); Squamous Epithelial Cells Rare /hpf (Few)
[2020-09-13] MEDS ORDERED: ACETAMINOPHEN500 MG PO (06:22)
[2020-09-13] MEDS ORDERED: LIDO700A20 TOP (06:22)
[2020-09-13 08:48] LABS: U Amphetamine Screen DETECTED; U Barbituate Screen Not Detected; U Benzodiazapine Screen Not Detected; U Buprenorphine Screen Not Detected; U Cannabinoids Screen DETECTED; U Cocaine Screen Not Detected; U Methadone Screen Not Detected; U Methamphetamine Screen DETECTED; U Opiates Screen Not Detected; U Oxycodone Screen Not Detected; U Phencyclidine Screen Not Detected; U Propoxyphene Screen Not Detected
== END 2020-09-13 09:01 | disposition home or self-care (01) ==
LOC: ER 02:48
PROVIDERS: Emergency Medicine
DX: M54.5 Low back pain (principal); G89.29 Other chronic pain; J44.9 Chronic obstructive pulmonary disease, unspecified; I10 Essential (primary) hypertension; K21.9 Gastro-esophageal reflux disease without esophagitis; F17.210 Nicotine dependence, cigarettes, uncomplicated; Z79.899 Other long term (current) drug therapy
CPT/HCPCS: 36415; 51701; 70450; 71045; 72125; 80053; 81001; 82550; 82553; 83880; 85025; 87086; 93005; 93010; 96361-59; 96374-59; 96375-59; 99284-25; A9270; J1885; J2060; J7120

== ENCOUNTER 2020-09-24 13:38 | Inpatient (IN) | payer OTHER ==
[~2020-09-24] VITALS: Ht 154.9 cm; Wt 53.3 kg
[~2020-09-24 13:38] MED LIST changes: +ACETAMINOPHEN500 MG PO; -ALBU2.5V5 INH; -CYCL10 PO; +CYCLOBENZAPRINE5 MG PO; -IPRAT-ALBUT 0.5-3 ML INH; +IPRAT-ALBUT 0.5-3 ML NEB; +LIDO700A20 TOP; -LISI20 PO; +ZESTRIL40 M1 PO
[2020-09-24] MEDS ORDERED: METF500C PO (14:04)
[2020-09-24] MEDS ORDERED: ATOR10 PO (14:05)
[2020-09-24] MEDS ORDERED: OMEP20ER PO (14:06)
[2020-09-24 14:24] LABS: BASOPHILS ABSOLUTE AUTO 0.06 K/mm3 (0.00-0.23); BASOPHILS PERCENT AUTO 0 % (0-2); EOSINOPHILS ABSOLUTE AUTO 0.07 K/mm3 (0.00-0.68); EOSINOPHILS PERCENT AUTO 0 % (0-6); Hematocrit 44.9 % (33.0-51.0); Hemoglobin 13.6 g/dL (11.5-16.0); IMMATURE GRAN PERCENT AUTO 0 % (0-1); LYMPHOCYTES ABSOLUTE AUTO 2.24 K/mm3 (0.84-5.20); LYMPHOCYTES PERCENT AUTO 10 % (21-46); MONOCYTES ABSOLUTE AUTO 0.48 K/mm3 (0.16-1.47); MONOCYTES PERCENT AUTO 2 % (4-13); Mean Corpuscular HGB 27.5 pg (26.0-34.0); Mean Corpuscular HGB Conc 30.3 g/dL (31.5-36.5); Mean Corpuscular Volume 91 fL (80-100); Mean Platelet Volume 9.2 fL (9.1-12.4); NEUTROPHILS PERCENT AUTO 87 % (41-73); Platelet Count 491 K/mm3 (150-400); RDW Coefficient Variation 15.9 % (11.7-14.2); RDW Standard Deviation 52.5 fL (35.1-46.3); Red Blood Cell Count 4.94 M/mm3 (3.80-5.20); White Blood Cell Count 22.45 K/mm3 (4.00-11.30)
[2020-09-24 14:50] LABS: Alanine Aminotransfer (ALT/SGP 41 U/L (12-78); Albumin, Blood 3.6 g/dL (3.4-5.0); Albumin/Globulin Ratio 0.8 (0.8-1.8); Alk Phos 127 U/L (50-136); Anion Gap 10 mmol/L (6-16); Aspartate Aminotrans (AST/SGOT 26 U/L (12-37); Bilirubin, Total 0.3 mg/dL (0.1-1.0); Blood Urea Nitrogen 33 mg/dL (8-24); Bun/Creatinine Ratio 37.7 (12.0-20.0); CO2, Blood 19 mmol/L (21-32); Calcium, Blood 9.4 mg/dL (8.5-10.1); Chloride, Blood 110 mmol/L (98-108); Creatinine, Blood 0.88 mg/dL (0.40-1.00); Globulin, Blood 4.8 g/dL (2.2-4.0); Glomerular Filtration Rate >60 (60-); Glucose, Blood 223 mg/dL (70-99); Potassium, Blood 4.4 mmol/L (3.5-5.5); Sodium, Blood 139 mmol/L (136-145); Total Protein, Blood 8.4 g/dL (6.4-8.2); Troponin I <0.015 ng/mL (0.000-0.040)
[2020-09-24 15:25] LABS: SARS-Cov-2 (COVID-19) PCR, MMC Negative (NEGATIVE)
[2020-09-24 15:26] LABS: Influenza A, PCR Negative (NEGATIVE); Influenza B, PCR Negative (NEGATIVE); Resp Syncytial Virus, PCR Negative (NEGATIVE)
[2020-09-24 17:10] LABS: Source, Urine Clean Catch
[2020-09-24 17:14] LABS: Appearance, Urine Hazy (Clear); Bilirubin, Urine Neg (Neg); Blood, Urine 1+ (Neg); Color, Urine Yellow (P-Yellow); Glucose Qualitative, Urine Neg (Neg); Ketones, Urine Neg (Neg); Leukocyte Esterase, Urine Neg (Neg); Nitrite, Urine Neg (Neg); Protein, Urine 3+ (Neg); Specific Gravity, Urine 1.025 (1.003-1.022); Urobilinogen, Urine NORM (Normal)
[2020-09-24 17:21] LABS: Amorphous Mod (0-Heavy)
[2020-09-24 17:22] LABS: Bacteria Few /hpf; Squamous Epithelial Cells Few /hpf (Few); White Blood Cells, Urine 0-2 /hpf (0-5)
[2020-09-24] MEDS ORDERED: ALBU90OI INH (18:18)
[2020-09-24] MEDS ORDERED: FLUT1DIS8 INH (18:19)
[2020-09-24 19:11] LABS: U Amphetamine Screen Not Detected; U Barbituate Screen Not Detected; U Benzodiazapine Screen Not Detected; U Buprenorphine Screen Not Detected; U Cannabinoids Screen DETECTED; U Cocaine Screen Not Detected; U Methadone Screen Not Detected; U Methamphetamine Screen Not Detected; U Opiates Screen Not Detected; U Oxycodone Screen DETECTED; U Phencyclidine Screen Not Detected; U Propoxyphene Screen Not Detected
--- NOTE | 2020-09-24 20:29 | NUR ---
call from lab indicating that 1999 reflexive lactic acid is 5.3, up from 4.1 in ER. Hospitalist imformed
[2020-09-25 04:58] LABS: BASOPHILS ABSOLUTE AUTO 0.03 K/mm3 (0.00-0.23); BASOPHILS PERCENT AUTO 0 % (0-2); EOSINOPHILS PERCENT AUTO 0 % (0-6); Hematocrit 32.2 % (33.0-51.0); Hemoglobin 10.1 g/dL (11.5-16.0); IMMATURE GRAN ABSOLUTE AUTO 0.11 K/mm3 (0.00-0.10); IMMATURE GRAN PERCENT AUTO 1 % (0-1); LYMPHOCYTES ABSOLUTE AUTO 0.84 K/mm3 (0.84-5.20); LYMPHOCYTES PERCENT AUTO 4 % (21-46); MONOCYTES PERCENT AUTO 1 % (4-13); Mean Corpuscular HGB 27.8 pg (26.0-34.0); Mean Corpuscular HGB Conc 31.4 g/dL (31.5-36.5); Mean Corpuscular Volume 89 fL (80-100); Mean Platelet Volume 9.2 fL (9.1-12.4); NEUTROPHILS ABSOLUTE AUTO 19.49 K/mm3 (1.96-9.15); NEUTROPHILS PERCENT AUTO 94 % (41-73); Platelet Count 356 K/mm3 (150-400); Red Blood Cell Count 3.63 M/mm3 (3.80-5.20); White Blood Cell Count 20.67 K/mm3 (4.00-11.30)
[2020-09-25 05:08] LABS: Adenovirus F 40/41 Not Detected (NOT DETECT); Astrovirus Not Detected (NOT DETECT); Campylobacter Sp Not Detected (NOT DETECT); Cryptosporidium Not Detected (NOT DETECT); Cyclospora Cayetanensis Not Detected (NOT DETECT); E. Coli O157 Not Detected (NOT DETECT); Entamoeba Histolytica Not Detected (NOT DETECT); Enteroaggregative E. coli-EAEC Not Detected (NOT DETECT); Enteropathogenic E. coli-EPEC Not Detected (NOT DETECT); Enterotoxigenic E. coli-ETEC Not Detected (NOT DETECT); Giardia Lamblia Not Detected (NOT DETECT); Norovirus GI/GII Detected (NOT DETECT); Plesiomonas Shigelloides Not Detected (NOT DETECT); Rotavirus A Not Detected (NOT DETECT); Salmonella Sp Not Detected (NOT DETECT); Sapovirus Not Detected (NOT DETECT); Shiga Toxin-prod E. coli-STEC Not Detected (NOT DETECT); Shigella/Enteroin E. coli-EIEC Not Detected (NOT DETECT); Vibrio Cholerae Not Detected (NOT DETECT); Vibrio Sp Not Detected (NOT DETECT); Yersinia Enterocolitica Not Detected (NOT DETECT)
[2020-09-25 05:15] LABS: Anion Gap 9 mmol/L (6-16); Blood Urea Nitrogen 27 mg/dL (8-24); Bun/Creatinine Ratio 34.5 (12.0-20.0); CO2, Blood 21 mmol/L (21-32); Calcium, Blood 9.1 mg/dL (8.5-10.1); Chloride, Blood 109 mmol/L (98-108); Creatinine, Blood 0.78 mg/dL (0.40-1.00); Glomerular Filtration Rate >60 (60-); Glucose, Blood 149 mg/dL (70-99); Potassium, Blood 4.5 mmol/L (3.5-5.5); Sodium, Blood 139 mmol/L (136-145)
--- NOTE | 2020-09-25 07:45 | NUR ---
ADJUNCT PHILOSOPHY FACULTY SUMMARY Patient arrived via stretcher from ER. She was extremely anxious and continued to moan loudly all night. Each time staff would go into the room to ask the patient if she was alright, check her brief or if she was in pain, she would very calmly state "No" and asked why we were always asking. I told her that she was making sounds that made us all think she was in pain. Towards the end of the shift, Lizette produced a large amount of bile colored mucous stool that when sent to lab, tested out as GI Norovirus. Around 0530, patient finally fell asleep.
--- NOTE | 2020-09-25 18:16 | NUR ---
SHIFT SUMMARY- PT A/O X3, UNSURE OF WHAT MONTH IT WAS BUT KNEW SASHA WAS SOON. PT ALERT AND AWAKE T/O THE DAY. PT REPORTS CHRONIC LOWER BACK PAIN, LIDOCAINE PATCH IN PLACE. LS CLEAR WITH OCCASIONAL RHONCHI, PT REMAINED ON RA T/O THE DAY. OCCASIONAL NON PRODUCTIVE COUGH. PT UP TO BSC WITH 1 ASSIST, PT REPOSITIONS SELF IN BED. PT INCONT OF URINE THIS AM BUT CONT T/O THE DAY. PT POSITIVE FOR NOROVIRUS. DAUGHTER IN TO SEE PT AND UPDATED. NO OTHER ACUTE CHANGES THIS SHIFT.
--- NOTE | 2020-09-25 19:15 | NUR ---
ASSUMED CARE RECEIVED REPORT FROM RENÉ NEWBY. ASSUMED CARE OF PT. RESTING COMFORTABLY, NO S/S ACUTE DISTRESS NOTED. DENIES PAIN, N/V AT THIS TIME. RESPS E/U. DENIES NEEDS. CALL LIGHT, POSSESSIONS IN REACH, WCTM.
[2020-09-26 04:40] LABS: BASOPHILS ABSOLUTE AUTO 0.03 K/mm3 (0.00-0.23); BASOPHILS PERCENT AUTO 0 % (0-2); EOSINOPHILS ABSOLUTE AUTO 0.09 K/mm3 (0.00-0.68); EOSINOPHILS PERCENT AUTO 1 % (0-6); Hematocrit 29.6 % (33.0-51.0); Hemoglobin 9.2 g/dL (11.5-16.0); IMMATURE GRAN ABSOLUTE AUTO 0.05 K/mm3 (0.00-0.10); IMMATURE GRAN PERCENT AUTO 0 % (0-1); LYMPHOCYTES ABSOLUTE AUTO 2.27 K/mm3 (0.84-5.20); LYMPHOCYTES PERCENT AUTO 17 % (21-46); MONOCYTES ABSOLUTE AUTO 0.67 K/mm3 (0.16-1.47); MONOCYTES PERCENT AUTO 5 % (4-13); Mean Corpuscular HGB 27.9 pg (26.0-34.0); Mean Corpuscular HGB Conc 31.1 g/dL (31.5-36.5); Mean Corpuscular Volume 90 fL (80-100); Mean Platelet Volume 9.2 fL (9.1-12.4); NEUTROPHILS ABSOLUTE AUTO 10.47 K/mm3 (1.96-9.15); NEUTROPHILS PERCENT AUTO 77 % (41-73); Platelet Count 315 K/mm3 (150-400); RDW Coefficient Variation 16.6 % (11.7-14.2); RDW Standard Deviation 54.4 fL (35.1-46.3); White Blood Cell Count 13.58 K/mm3 (4.00-11.30)
[2020-09-26 05:03] LABS: Albumin, Blood 2.8 g/dL (3.4-5.0); Anion Gap 4 mmol/L (6-16); Blood Urea Nitrogen 27 mg/dL (8-24); Bun/Creatinine Ratio 33.1 (12.0-20.0); CO2, Blood 26 mmol/L (21-32); Calcium, Blood 9.1 mg/dL (8.5-10.1); Chloride, Blood 113 mmol/L (98-108); Creatinine, Blood 0.82 mg/dL (0.40-1.00); Glomerular Filtration Rate >60 (60-); Glucose, Blood 93 mg/dL (70-99); Phosphorus, Blood 3.2 mg/dL (2.5-4.9); Potassium, Blood 4.2 mmol/L (3.5-5.5); Sodium, Blood 143 mmol/L (136-145)
--- NOTE | 2020-09-26 07:15 | NUR ---
SHIFT SUMMARY PT HAS HAD NO EPISODES OF N/V T/O NIGHT, SLEPT T/O. VS REVIEWED, WNL. RESPS E/U, DENIES SOB. PAIN MANAGED WITH MEDS PER EMAR. STOOLS CONTINUE TO BE LOOSE, PT DENIES ABD CRAMPS, DISCOMFORT. DENIES NEEDS AT THIS TIME. CALL LIGHT, POSSESSIONS IN REACH, BED IN LOW POSITION WITH ALARMS ON. IVF ONGOING. REPORT GIVEN TO RENÉ BEASLEY.
--- NOTE | 2020-09-26 18:05 | NUR ---
PT AOX4 AND COOPERATIVE OF CARE. PT DENIES ANY PAIN AT THIS TIME. PT HAS CONTINUED LOOSE STOOL. PT IS A ONE PERSON STANDBY TO COMMODE. PT DOING WELL AT THIS TIME. CALL LIGHT IS WITHIN REACH NO DISTRESS NOTED.
[2020-09-27 05:45] LABS: Albumin, Blood 2.9 g/dL (3.4-5.0); Anion Gap 7 mmol/L (6-16); Blood Urea Nitrogen 19 mg/dL (8-24); Bun/Creatinine Ratio 24.6 (12.0-20.0); CO2, Blood 28 mmol/L (21-32); Calcium, Blood 9.1 mg/dL (8.5-10.1); Chloride, Blood 105 mmol/L (98-108); Creatinine, Blood 0.77 mg/dL (0.40-1.00); Glomerular Filtration Rate >60 (60-); Glucose, Blood 97 mg/dL (70-99); Phosphorus, Blood 3.8 mg/dL (2.5-4.9); Potassium, Blood 3.6 mmol/L (3.5-5.5); Sodium, Blood 140 mmol/L (136-145)
--- NOTE | 2020-09-27 07:25 | NUR ---
09/27/20 0600 VITALS STABLE.PT WAS MOANING EARLIER THIS AM AND WHEN RN ASKED IF SHE WAS IN PAIN SHE SAID, "YES." STATES SHE HAS CHRONIC BACK PAIN. MEDICATED PER DEC. SLIGHT SOB NOTED AFTER UP TO THE BATHROOM FOR VOIDING AND BM'S. SHE HAD 2 BM'S THIS SHIFT.
[2020-09-27 08:04] LABS: BASOPHILS ABSOLUTE AUTO 0.03 K/mm3 (0.00-0.23); BASOPHILS PERCENT AUTO 0 % (0-2); EOSINOPHILS ABSOLUTE AUTO 0.11 K/mm3 (0.00-0.68); EOSINOPHILS PERCENT AUTO 1 % (0-6); Hematocrit 31.8 % (33.0-51.0); IMMATURE GRAN ABSOLUTE AUTO 0.04 K/mm3 (0.00-0.10); IMMATURE GRAN PERCENT AUTO 0 % (0-1); LYMPHOCYTES ABSOLUTE AUTO 2.15 K/mm3 (0.84-5.20); LYMPHOCYTES PERCENT AUTO 19 % (21-46); MONOCYTES ABSOLUTE AUTO 0.62 K/mm3 (0.16-1.47); MONOCYTES PERCENT AUTO 5 % (4-13); Mean Corpuscular HGB 28.1 pg (26.0-34.0); Mean Corpuscular HGB Conc 31.4 g/dL (31.5-36.5); Mean Corpuscular Volume 89 fL (80-100); Mean Platelet Volume 9.5 fL (9.1-12.4); NEUTROPHILS ABSOLUTE AUTO 8.52 K/mm3 (1.96-9.15); NEUTROPHILS PERCENT AUTO 74 % (41-73); Platelet Count 332 K/mm3 (150-400); RDW Coefficient Variation 16.2 % (11.7-14.2); RDW Standard Deviation 53.5 fL (35.1-46.3); Red Blood Cell Count 3.56 M/mm3 (3.80-5.20); White Blood Cell Count 11.47 K/mm3 (4.00-11.30)
--- NOTE | 2020-09-27 17:37 | NUR ---
PT AOX4 BUT HAS BEEN VERY TIRED TODAY AND STATES SHE HAS NOT BEEN FEELING GOOD TODAY. PT IS A STANDBY TO COMMODE. PT SLEEPING A LOT TODAY, BUT CAN BE WOKE UP CALLING HER NAME. PT USES CALL LIGHT APPROPRIATELY. PT HAD MILD BACK PAIN, BUT FELT HER PAIN PATCH WAS EFFECTIVE. CALL LIGHT IS WITHIN REACH WILL CONTINUE TO MONITOR.
[2020-09-28 04:48] LABS: BASOPHILS ABSOLUTE AUTO 0.03 K/mm3 (0.00-0.23); BASOPHILS PERCENT AUTO 0 % (0-2); EOSINOPHILS ABSOLUTE AUTO 0.17 K/mm3 (0.00-0.68); EOSINOPHILS PERCENT AUTO 2 % (0-6); Hematocrit 34.7 % (33.0-51.0); Hemoglobin 10.7 g/dL (11.5-16.0); IMMATURE GRAN ABSOLUTE AUTO 0.03 K/mm3 (0.00-0.10); IMMATURE GRAN PERCENT AUTO 0 % (0-1); LYMPHOCYTES ABSOLUTE AUTO 2.02 K/mm3 (0.84-5.20); LYMPHOCYTES PERCENT AUTO 25 % (21-46); MONOCYTES ABSOLUTE AUTO 0.44 K/mm3 (0.16-1.47); MONOCYTES PERCENT AUTO 6 % (4-13); Mean Corpuscular HGB 27.2 pg (26.0-34.0); Mean Corpuscular HGB Conc 30.8 g/dL (31.5-36.5); Mean Corpuscular Volume 88 fL (80-100); NEUTROPHILS ABSOLUTE AUTO 5.28 K/mm3 (1.96-9.15); NEUTROPHILS PERCENT AUTO 66 % (41-73); Platelet Count 365 K/mm3 (150-400); RDW Coefficient Variation 15.9 % (11.7-14.2); RDW Standard Deviation 51.4 fL (35.1-46.3); Red Blood Cell Count 3.94 M/mm3 (3.80-5.20); White Blood Cell Count 7.97 K/mm3 (4.00-11.30)
--- NOTE | 2020-09-28 06:13 | NUR ---
SHIFT SUMMARY- PT. A&O, CALLS APPROPRIATELY. HAD NO COMPLAINTS T/O THE NIGHT. ASLEEP MOST OF THE NIGHT, NO APPARENT DISTRESS NOTED. VSS. CALL LIGHT WITHIN REACH AND SIDE RAILS UPX2. WILL CONT TO MONITOR.
[2020-09-28] MEDS ORDERED: ACET500 PO (11:25)
[2020-09-28] MEDS ORDERED: MELA3 PO (11:27)
[2020-09-28] MEDS ORDERED: VISBIOME PROBIOTIC PO (11:28)
--- NOTE | 2020-09-28 14:58 | NUR ---
DISCHARGE PT DISCHARGE TODAY. IV DC'D. MEDICATIONS SENT TO [facility] AND PT AWARE TO FU TO PCP AND TAKE MEDS PRESCRIBED. PT WAS GIVEN DISCHARGE EDUCATIONS AND EDUCATED ABOUT THE COPD EXACERBATION; GIVEN PRINTED MATERIALS. PT LEFT HOSPITAL WITHOUT TELLING THE STAFF AFTER BREATHING TX AND DURING THE LUNCH BREAK OF THIS NURSE. PT TOLD THIS NURSE THAT SHE IS WAITING TO HER DAUGHTER TO COME PICK HER UP, BUT NOT SURE WHAT TIME SHE WILL BE LEAVING. PT TOOK ALL HER BELONGINGS WITH HER AND DISCHARGE PACKET.
== END 2020-09-28 14:30 | disposition home or self-care (01) | DRG 392 ==
LOC: ER 13:38 → MEDS 16:41
PROVIDERS: Physician Assistant; ADMIT Family Medicine
DX: A08.11 Acute gastroenteropathy due to Norwalk agent (principal); J44.1 Chronic obstructive pulmonary disease with (acute) exacerbation; E11.9 Type 2 diabetes mellitus without complications; Z20.828 Contact with and (suspected) exposure to other viral communicable diseases; I10 Essential (primary) hypertension; F17.210 Nicotine dependence, cigarettes, uncomplicated; K21.9 Gastro-esophageal reflux disease without esophagitis; E78.5 Hyperlipidemia, unspecified; D47.3 Essential (hemorrhagic) thrombocythemia
CPT/HCPCS: 0097U; 0241U; 36415; 71045; 80048; 80053; 80069; 81001; 82947; 83036; 83605; 83690; 84145; 84484; 85025; 87040; 93005; 93010; 94640; 94760; 96365; 96375; 97116; 97161; 99285-25; A9270; J0696; J1650; J2405; J7050; J7120

== ENCOUNTER 2025-04-14 00:28 | Emergency (ER) | payer OTHER ==
[~2025-04-14] VITALS: Ht 152.4 cm; Wt 66.7 kg
[~2025-04-14 00:28] MED LIST changes: +ACET500 PO; +ALBU90OI INH; +ASPI81CH PO; +ATOR10 PO; +Cyclobenzaprine5 MG PO; +FLUT1DIS8 INH; +JUVEN PACKET1 EAC3 PO; +METF500C PO; +OMEP20ER PO; +PREG150 PO; +QUET25 PO; +VISBIOME 112.51 EACH PO; +VISBIOME PROBIOTIC PO
[2025-04-14 04:40] VITALS: BP 179/63
== END 2025-04-14 05:00 | disposition home or self-care (01) ==
LOC: ER 00:28
DX: S01.81XA Laceration without foreign body of other part of head, initial encounter (principal); Z79.899 Other long term (current) drug therapy; Z79.84 Long term (current) use of oral hypoglycemic drugs; J44.9 Chronic obstructive pulmonary disease, unspecified; K21.9 Gastro-esophageal reflux disease without esophagitis; G47.33 Obstructive sleep apnea (adult) (pediatric); E78.5 Hyperlipidemia, unspecified; F17.210 Nicotine dependence, cigarettes, uncomplicated; W06.XXXA Fall from bed, initial encounter
CPT/HCPCS: 12011; 70450; 72125; 90471; 90715; 99284-25

== ENCOUNTER 2025-04-20 12:19 | Emergency (ER) | payer OTHER ==
[~2025-04-20] VITALS: Ht 152.4 cm; Wt 68.0 kg
[2025-04-20 13:12] LABS: BASOPHILS ABSOLUTE AUTO 0.06 K/mm3 (0.00-0.23); BASOPHILS PERCENT AUTO 1 % (0-2); EOSINOPHILS ABSOLUTE AUTO 0.22 K/mm3 (0.00-0.68); EOSINOPHILS PERCENT AUTO 3 % (0-6); Hematocrit 34.2 % (33.0-51.0); Hemoglobin 10.6 g/dL (11.5-16.0); IMMATURE GRAN ABSOLUTE AUTO 0.03 K/mm3 (0.00-0.10); IMMATURE GRAN PERCENT AUTO 0 % (0-1); LYMPHOCYTES ABSOLUTE AUTO 2.00 K/mm3 (0.84-5.20); LYMPHOCYTES PERCENT AUTO 22 % (21-46); MONOCYTES ABSOLUTE AUTO 0.72 K/mm3 (0.16-1.47); MONOCYTES PERCENT AUTO 8 % (4-13); Mean Corpuscular HGB Conc 31.0 g/dL (31.5-36.5); Mean Corpuscular Volume 86 fL (80-100); NEUTROPHILS ABSOLUTE AUTO 5.88 K/mm3 (1.96-9.15); NEUTROPHILS PERCENT AUTO 66 % (41-73); NRBC ABSOLUTE 0.00 K/mm3 (0.00-0.02); NRBC Auto 0.0 /100 WBC (0.0-0.2); Platelet Count 281 K/mm3 (150-400); RDW Coefficient Variation 15.8 % (11.7-14.2); RDW Standard Deviation 49.6 fL (35.1-46.3)
[2025-04-20] MEDS ORDERED: Ipratropium/Albuterol SulF 2.5-0.5MG/3 ML Amp INH ONE (13:30)
[2025-04-20 13:31] LABS: Alanine Aminotransfer (ALT/SGP 30.0 U/L (12-78); Albumin, Blood 3.4 g/dL (3.4-5.0); Albumin/Globulin Ratio 0.8 (0.8-1.8); Anion Gap 7.0 mmol/L (3-11); Aspartate Aminotrans (AST/SGOT 15.0 U/L (12-37); Bilirubin, Total 0.4 mg/dL (0.1-1.0); Blood Urea Nitrogen 27.0 mg/dL (8-24); CO2, Blood 28.0 mmol/L (21-32); Calcium, Blood 8.8 mg/dL (8.5-10.1); Chloride, Blood 109.0 mmol/L (98-108); Creatinine, Blood 0.91 mg/dL (0.40-1.00); Globulin, Blood 4.2 g/dL (2.2-4.0); Glucose, Blood 92.0 mg/dL (70-99); Potassium, Blood 4.5 mmol/L (3.5-5.5); Sodium, Blood 139.0 mmol/L (136-145); Total Protein, Blood 7.6 g/dL (6.4-8.2)
[2025-04-20] MEDS ORDERED: FLUT1DIS8 INH (15:14)
[2025-04-20] MEDS ORDERED: METF500C PO (15:14)
[2025-04-20] MEDS ORDERED: Zithromax250 MG PO (15:14)
[2025-04-20] MEDS ORDERED: Aspirin EC81 MG PO (15:14)
[2025-04-20] MEDS ORDERED: ALBU90OI INH (15:14)
[2025-04-20] MEDS ORDERED: Prednisone20 MG PO (15:14)
[2025-04-20] MEDS ORDERED: LISI20 PO (15:14)
[2025-04-20] MEDS ORDERED: ATOR40TA PO (15:14)
[2025-04-20] MEDS ORDERED: PREG150 PO (15:14)
[2025-04-20 15:15] VITALS: BP 186/55
== END 2025-04-20 15:41 | disposition home or self-care (01) ==
LOC: ER 12:19
PROVIDERS: Emergency Medicine
DX: J44.1 Chronic obstructive pulmonary disease with (acute) exacerbation (principal); J44.9 Chronic obstructive pulmonary disease, unspecified; I10 Essential (primary) hypertension; K21.9 Gastro-esophageal reflux disease without esophagitis; G47.30 Sleep apnea, unspecified; E78.5 Hyperlipidemia, unspecified; F17.210 Nicotine dependence, cigarettes, uncomplicated; Z76.0 Encounter for issue of repeat prescription; Z79.51 Long term (current) use of inhaled steroids; Z79.4 Long term (current) use of insulin; Z79.82 Long term (current) use of aspirin; Z79.84 Long term (current) use of oral hypoglycemic drugs
CPT/HCPCS: 71045; 80053; 83880; 84484; 85025; 93005; 93010; 99285-25; A9270; J2919; J7512